=== PATIENT | male | born 1980 | race American Indian/Alaskan Native ===

== ENCOUNTER 2021-04-02 15:54 | Inpatient (IN) | payer SELFPAY ==
[2021-04-10 12:45] VITALS: BP 118/71
== END 2021-04-10 16:00 | disposition home or self-care (01) | DRG 872 ==
LOC: ED 15:54 → 3A 21:58 → 4A 22:41
PROVIDERS: ADMIT Internal Medicine Geriatric Medicine; ATTEND Internal Medicine
PROC: 06HY33Z Insertion of Infusion Device into Lower Vein, Percutaneous Approach (ICD-10-PCS; principal; 2021-04-07)
DX: A41.9 Sepsis, unspecified organism (principal); M86.171 Other acute osteomyelitis, right ankle and foot; E87.1 Hypo-osmolality and hyponatremia; E11.621 Type 2 diabetes mellitus with foot ulcer; Z79.84 Long term (current) use of oral hypoglycemic drugs; Z79.899 Other long term (current) drug therapy; Z79.891 Long term (current) use of opiate analgesic; Z79.01 Long term (current) use of anticoagulants; E11.69 Type 2 diabetes mellitus with other specified complication; E11.65 Type 2 diabetes mellitus with hyperglycemia; D72.829 Elevated white blood cell count, unspecified; L97.519 Non-pressure chronic ulcer of other part of right foot with unspecified severity
CPT/HCPCS: 36415; 80048; 80053; 80202; 82140; 82962; 83036; 85007; 85025; 85610; 87040; 93925; G0378; J0692; J0696; J1815; J3370; J7030; J7050